=== PATIENT | female | born 1985 | race Two or more races ===

== ENCOUNTER 2020-09-01 11:44 | Outpatient (CLI) | payer BC ==
[~2020-09-01 11:44] MED LIST: DOCU-131 PO; IBUP-1222 PO; OXYC1TAB12 PO
[2020-09-01] MEDS ORDERED: none per pt (12:15)
== END 2020-09-01 23:59 | disposition home or self-care (01) ==
LOC: STAR 11:44
PROVIDERS: ATTEND Surgery
DX: Z02.9 Encounter for administrative examinations, unspecified (principal)

== ENCOUNTER 2020-09-10 13:36 | Day surgery (SDC) | payer BC ==
[~2020-09-10] VITALS: Ht 162.6 cm; Wt 57.5 kg
[~2020-09-10 13:36] MED LIST changes: -OXYC1TAB12 PO; +OXYC1TAB14 PO; +none per pt
[2020-09-10] MEDS ORDERED: BUPIVACAINE/PF 0.5% ONE (13:45)
[2020-09-10] MEDS ORDERED: EPINEPHRINE 1 MG/ML, 1ML ONE (13:45)
[2020-09-10 14:02] VITALS: BP 117/76
[2020-09-10] MEDS ORDERED: CHLORHEXIDINE 15 ML UDC ONE (14:05)
[2020-09-10] MEDS ORDERED: CHLORHEXIDINE 15 ML UDC PO ONE (14:30)
[2020-09-10] MEDS ORDERED: LACTATED RINGERS 1,000 ML IV SCH (14:30)
[2020-09-10] MEDS ORDERED: FENTANYL PF 100 MCG/2ML ONE ×2 (14:35)
[2020-09-10] MEDS ORDERED: MIDAZOLAM 1 MG/ML, 2ML ONE (14:35)
[2020-09-10] MEDS ORDERED: ONDANSETRON 2MG/ML, 2ML ONE ×2 (14:41→17:15)
[2020-09-10] MEDS ORDERED: PROPOFOL 10 MG/ML, 20ML ONE (14:41)
[2020-09-10] MEDS ORDERED: DEXAMETHASONE 4 MG/ML, 1ML ONE (14:41)
[2020-09-10] MEDS ORDERED: CEFAZOLIN 1,000 MG ONE (14:41)
[2020-09-10] MEDS ORDERED: SCOPOLAMINE 1MG PATCH TD ONE (15:36)
[2020-09-10] MEDS ORDERED: ROCURONIUM 10MG/ML,5ML ONE (15:53)
[2020-09-10] MEDS ORDERED: SUCCINYLCHOLINE 20 MG/ML, 10ML ONE (15:53)
[2020-09-10] MEDS ORDERED: HALOPERIDOL 5 MG/ML IV PRN (16:00)
[2020-09-10] MEDS ORDERED: ACETAMINOPHEN 325 MG TABLET PO PRN (16:00)
[2020-09-10] MEDS ORDERED: HYDROmorphone 1 MG/ML, 1ML INJ IVPush PRN (16:00)
[2020-09-10] MEDS ORDERED: OXYcodone 5 MG/5 ML ORAL.SOL UDC PO PRN ×2 (16:00→17:00)
[2020-09-10] MEDS ORDERED: FENTANYL PF 100 MCG/2ML IV PRN ×2 (16:00→17:00)
[2020-09-10] MEDS ORDERED: LABETALOL 5MG/ML, 20ML IV PRN ×2 (16:00→17:00)
[2020-09-10] MEDS ORDERED: MEPERIDINE/PF 25MG/0.5ML IVPush PRN ×2 (16:00→17:00)
[2020-09-10] MEDS ORDERED: hydrALAzine 20 MG/ML, 1ML IV PRN ×2 (16:00→17:00)
[2020-09-10] MEDS ORDERED: PROMETHAZINE 25 MG/ML, 1ML IVPush PRN (16:00)
[2020-09-10] MEDS ORDERED: morphine SULFATE 10 MG/ML, 1ML IVPush PRN (16:00)
[2020-09-10] MEDS ORDERED: KETOROLAC 30 MG/1 ML IV PRN (17:00)
[2020-09-10] MEDS ORDERED: DIAZEPAM 5 MG/ML, 2ML IV PRN ×2 (17:00)
[2020-09-10] MEDS ORDERED: HYDROmorphone 1 MG/ML, 1ML INJ IV PRN (17:00)
[2020-09-10] MEDS ORDERED: METOCLOPRAMIDE 5 MG/ML, 2ML IV PRN (17:00)
[2020-09-10] MEDS ORDERED: ONDANSETRON 2MG/ML, 2ML IVPush PRN (17:00)
[2020-09-10] MEDS ORDERED: PROMETHAZINE 25 MG/ML, 1ML IV PRN (17:00)
[2020-09-10] MEDS ORDERED: ALBUTEROL SULFATE 2.5 MG/3 ML NPPB PRN (17:00)
[2020-09-10] MEDS ORDERED: ONDA4TAB7 PO (17:01)
[2020-09-10] MEDS ORDERED: HYDR-2214 PO (17:01)
== END 2020-09-10 18:45 | disposition home or self-care (01) ==
LOC: OR 13:36
PROVIDERS: ATTEND Surgery
DX: D48.61 Neoplasm of uncertain behavior of right breast (principal); D24.1 Benign neoplasm of right breast; Z79.899 Other long term (current) drug therapy; Z98.890 Other specified postprocedural states; Z80.42 Family history of malignant neoplasm of prostate
CPT/HCPCS: 19120; 36415; 84703; 88305; J0171; J0330; J0690; J1100; J2250; J2405; J2704; J3010; J7120